=== PATIENT | female | born 1940 | race Caucasian/White ===

== ENCOUNTER → 2023-09-21 10:36 | Outpatient (REF) | payer MEDICARE, BC, SELFPAY ==
--- NOTE | 2023-09-21 10:52 | CA_ITS ---
Transthoracic Echocardiogram Patient (Last, First, Middle): Gena Walker, Gender: Female Date of : 1940 Age: 83 Procedure Date: 09/21/2023 Procedure Type: Transthoracic Echocardiogram Location: OP Height: 157. cm Weight: 99.79 kg BSA: 1.99 m2 Heart Rate: 76 bpm BP: 150 / 80 mmHg Drophammer Operator: ROSA Referring MD: Ger Anton MD Symptoms: SOB RO6.02 I49.49 PREMATURE DEPOLARIZATION Study Quality: Fair ECG Rhythm: Sinus Conclusions: - The left ventricular systolic function is normal. The calculated ejection fraction is 58% by biplane method. - No obvious valvular pathology seen on this study. Findings Left Ventricle Normal left ventricular cavity size. The left ventricular systolic function is normal. The calculated ejection fraction is 58% by biplane method. There is no evidence of regional wall motion abnormalities. Diastolic function is normal for age. There is mild septal asymmetric hypertrophy. LV peak GLS 18.7% (normal). Right Ventricle Normal right ventricular cavity size and systolic function. Atria Both atria are normal in size. Aortic Valve There is a normal trileaflet aortic valve. There is no aortic valve stenosis. There is no aortic valve regurgitation. Mitral Valve The mitral valve appears normal. There is no mitral valve regurgitation. There is no mitral valve stenosis. Pulmonic Valve The pulmonic valve is likely normal. Tricuspid Valve Normal tricuspid valve structure. There is trace tricuspid valve regurgitation. There is no evidence of pulmonary hypertension. Great Vessels The asc aorta is normal in size. Venous The inferior vena cava is normal in size and collapses greater than 50% with inspiration. Pericardium/Pleural There is no evidence of pericardial effusion. Prior Study Comparison No prior study available for comparison. Recommendations, Care & Conclusions No obvious valvular pathology seen on this study. Measurements 2D Linear Measurements IVSd: 1.08 0.6-0.9/0.6-1.0 cm LVIDd: 4.14 3.9-5.3/4.2-5.9 cm LVIDd Index: 2.08 2.4-3.2/2.2-3.1 cm/m2 LVIDs: 2.56 2.0-3.6 cm LVPWd: 0.91 0.7-1.1 cm LA Diam: 2.60 2.7-3.8/3.0-4.0 cm LAIDs Index: 1.31 1.5-2.3 cm/m2 LV Mass: 166.23 67-162/88-224 g LV Mass Index: 83.53 43-95/49-115 g/m2 LVOT Diam: 2.10 3.0+(-)1.3 cm 2D Systolic Function EF 4C: 58.50 >55% EF 2C: 56.90 >55% EF BiP: 58.30 >55% Mitral Valve MV Pk E: 0.74 MV PK A: 1.06 MV Decel Time: 266.00 E/A: 0.70 E'Lateral: 7.62 E'Medial: 5.98 E/E' Med: 12.40 E/E' Lat: 9.70 PHT: 78.00 MVA PHT: 2.82 Decel Bullock: 2.79 Aortic Valve AoV Pk Adrian: 1.53 AoV Mn Adrian: 0.96 AoV VTI: 0.27 AoV Pk Grad: 9.00 Aov Mn Grad: 4.00 AGUS Cont.VTI: 2.61 LVOT LVOT Pk Adrian: 1.06 LVOT Mn Adrian: 0.71 LVOT VTI: 0.21 LVOT Pk Grad: 4.00 LVOT Mn Grad: 2.00 LVOT Diam: 2.10 LVOT Area: 3.46 Diastolic Function MV Pk E: 0.74 MV Pk A: 1.06 E/A: 0.70 E'Medial: 5.98 E/E' Med: 12.40 E' Laterial: 7.62 E/E' Lat: 9.70 Right Ventricle TAPSE (mm): 25.40 TVS' Adrian: 17.00 Tricuspid Valve TR Pk Adrian: 1.93 TR Pk Grad: 15.00 RA Press: 3.00 RVSP: 18.00 Great Vessels Aorta Sinus of Valsalva: 3.30 2.0-3.5 cm Ao Asc: 3.80 2.1-3.4 cm Pulmonary Valve PV Pk Adrian: 0.95 Peak PV Grad: 4.00 Updated in Other Vendor System with Status of Final Stevo Lai MD electronically signed on 09/21/2023 3:45:35 PM with status of Final
--- NOTE | 2023-09-21 10:54 | HM_ITS ---
* Total monitoring time 2 days. * Underlying rhythm is sinus with an average rate of 79/Min. * Frequent ventricular ectopy with a burden of 7%. Rare bigeminy/trigeminy. No significant runs. * Rare supraventricular ectopy. * No significant pauses or AV blocks. * Patient marker used in association with sinus rhythm and ventricular ectopy. * Shortness of breath in patient diary correlates with ventricular ectopy. MTDD
== END ==
LOC: HO.CARD 10:36
PROVIDERS: PCP Internal Medicine; Visit Provider Internal Medicine
DX: R06.02 Shortness of breath (principal); I49.49 Other premature depolarization
CPT/HCPCS: 93242; 93306; 93356

== ENCOUNTER → 2023-09-21 10:52 | Outpatient (BNV) | payer MEDICARE, OTHER, SELFPAY | PROVIDERS: PCP Internal Medicine; Visit Provider Internal Medicine | DX: I49.3 Ventricular premature depolarization (principal) | CPT/HCPCS: 93244; 93306; 93356 ==

== ENCOUNTER 2024-01-10 14:53 | Outpatient (AMB) | payer MEDICARE, SELFPAY ==
--- NOTE | 2024-01-10 14:55 | A.OFFVIS_ITS ---
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 Patient herself does not have any history of coronary artery disease, myocardial infarction or cardiomyopathy or in fact any other cardiac issues. She denies any complaints like exertional angina. Some shortness of breath off and on. She seems to be on triamterene/hydrochlorothiazide for hypertension. Today's blood pressure is on the higher side but she states she is anxious. [facility] Medical History (Updated 01/10/24 @ 15:32 by Stevo Lai MD) Essential hypertension Family History (Updated 01/10/24 @ 15:22 by Stevo Lai MD) Mother Liver cancer Father Leukemia Social History (Updated 01/10/24 @ 15:06 by Estephanie Catherine CMA) Alcohol intake: current Comment: rare Patient Tobacco Use Status: Former Tobacco user Review of Systems Const Denies chills, Denies daytime sleepiness, Denies fatigue, Denies fever(s), Denies poor appetite, Denies snoring, Denies stops breathing during sleep, Denies weakness, Denies weight gain and Denies weight loss Eyes Denies loss of vision ENT Denies dizziness and Denies hearing loss Card Denies chest pain, Denies irregular heart rhythm, Denies claudication, Denies leg edema, Denies lightheadedness, Denies palpitations, Reports dyspnea on exertion and Denies orthopnea Resp Denies cough, Denies excessive phlegm production, Reports dyspnea on exertion, Denies snoring and Denies wheezing GI Denies abdominal pain, Denies hematochezia, Denies change in bowel habits, Denies nausea and Denies vomiting Denies urinary frequency and Denies dysuria Musc Denies arthralgias, Denies muscle weakness, Denies numbness and Denies other Skin/Breast Denies nail changes and Denies rash Neuro Denies Abnormal speech present, Denies dizziness, Denies loss of vision, Denies memory loss, Denies numbness and Denies weakness Psych Denies depression and Denies memory loss Endo Denies fatigue and Denies palpitations Jude/Lymph Denies easy bruising Aller/Immun Denies wheezing Physical Exam Vital Signs: Last Vital Signs Pulse 81 01/10/24 14:59 BP 152/96 H 01/10/24 14:59 BMI result Body Mass Index 42.3 Const General: comfortable and no acute distress Orientation/consciousness: patient oriented x3 HEENT Other: Unremarkable Head: Yes normal to inspection Neck Neck: Yes normal visual inspection Chest Chest palpation & inspection: normal inspection of the chest Resp Auscultation: clear to auscultation bilaterally Cardio Palpation: normal PMI Heart sounds: S1 normal heart sound present, S2 normal heart sound present, no gallops, no murmurs and no rubs GI Palpation (GI): Soft to palpation Back/Spine/Pelvis Other: unremarkable Skin General skin exam: no rashes or lesions noted Neuro General: patient oriented x3 Speech: No Abnormal speech present Extrem General: Yes normal to inspection Psych Mental Status: mental status grossly normal Office Procedures EKG Details: EKG with underlying sinus rhythm at 81/Min; frequent PVCs; [place] [id number], Complete Assessment & Plan Assessment & Plan (1) PVC (premature ventricular contraction): Code(s): I49.3 - Ventricular premature depolarization Category: Medical (2) Essential hypertension: Code(s): I10 - Essential (primary) hypertension Category: Medical Plan EKG shows PVCs as above. Normal corrected QT. In the echocardiogram, LVEF is 58%. No wall motion abnormalities. Normal peak global longitudinal strain. Otherwise unremarkable. In the Holter monitor, underlying rhythm is sinus with frequent ventricular ectopy. [place] 7%. No significant runs. Overall, asymptomatic PVCs with preserved LVEF. Uncertain etiology. We will get a pharmacological stress perfusion study. Unlikely to exercise on the treadmill. Will need to get labs from PCP before that. Otherwise, consider beta-blockers as the blood pressure is also on the slightly higher side. However, patient states it is because of anxiety. Discussed with daughter. Orders: Orders CA lexiscan stress w skye Today I20.9 - Angina pectoris, unspecified, I49.3 - Ventricular premature depolarization NM cardiolite stress test Today I49.3 - Ventricular premature depolarization, R07.2 - Precordial pain Coding Level of Care Code New Pt Level 4 (74969) Diagnoses PVC (premature ventricular contraction) I49.3 Essential hypertension I10 CPT Codes EKG - CPT: 96087-[id number], Complete ([id number])
[2024-01-10 14:59] VITALS: BP 152/96; PULSE 81; BMI 42.3
== END 2024-01-10 15:37 | disposition home or self-care (01) ==
PROVIDERS: PCP Internal Medicine; Visit Provider Internal Medicine
DX: I49.3 Ventricular premature depolarization (principal); I10 Essential (primary) hypertension
CPT/HCPCS: 93010; 99214

== ENCOUNTER → 2024-01-10 14:53 | Outpatient (BNVA) | payer MEDICARE, BC, SELFPAY | PROVIDERS: PCP Internal Medicine; Visit Provider Internal Medicine | DX: I48.3 Typical atrial flutter (principal); I10 Essential (primary) hypertension | CPT/HCPCS: 93005; 99212 ==

== ENCOUNTER 2024-08-25 14:16 | Outpatient (AMB) | payer MEDICARE, BC, SELFPAY ==
[2024-08-25 14:19] VITALS: BP 138/80; PULSE 86; TEMP 36.6; O2SAT 96; BMI 39.0
--- NOTE | 2024-08-25 14:19 | MHC.PC.OV ---
Vital Signs 08/25/24 14:19 Height 5 ft 2 in Weight 213 lb BMI 39.0 BP 138/80 Blood Pressure Location Lt brachial Position Sitting Pulse 86 Pulse Source Pulse Oximeter Temp 97.8 F Temp Source Axillary Pulse Oximetry (%) 96 Oxygen Delivery Method Room Air Intake Visit Reasons: Routine Assessment Technician Required: No Accompanied by: Self / Same As Patient Allergies codeine [CODEINE] Allergy (Intermediate, Unverified 08/25/24 14:20) VOMITING Tobacco use date assessed: 08/25/24 Fall risk assessment: No Falls in past year Last assessed Fall Risk: 08/25/24 Dental Screening Dental Screen Date: 08/25/24 Did you have a dental visit in the last 12 months?: Yes Did you have a dental problem in the last 6 months where you did not have access to dental care?: No HPI HPI Comments History of Present Illness Details Patient is a 83 year old with past medical history of htn, hld, GERD, PUD,venous stasis, arthritis, presneting for follow up CV: on triamterene hctz, atorvastatin. 130/80. Denies chest pain, shortness of breath. History of PVCs. Saw cardiology. GERD: stable on omeprazole Bilateral knee pain ROS see HPI PHYSICAL EXAM: GENERAL: Alert and oriented x 3. NAD EYES: EOMI. Anicteric. HENT: Moist mucous membranes. No scleral icterus. No cervical lymphadenopathy. LUNGS: Clear to auscultation bilaterally. CARDIOVASCULAR: Regular rate and rhythm. No murmur. No JVD. ABDOMEN: Soft, non-tender +bs EXTREMITIES: No edema. Non-tender. SKIN: No rashes or lesions. Warm. NEUROLOGIC: No focal neurological deficits. CN II-XII grossly intact PSYCHIATRIC: Cooperative. Appropriate mood and affect [facility] Medical History Essential hypertension Family History Mother Liver cancer Father Leukemia Social History Housing: House Alcohol intake: current Comment: rare Patient Tobacco Use Status: Former Tobacco user e-Cigarette/Vaping Use: Former Use service: No Current occupational status: retired Cognitive needs: Yes (cane) Hearing needs: No Vision needs: Yes (rx glasses) Questionnaire PHQ-9 Over the last 2 weeks, how often have you been bothered by any of the following problems? 1. Little interest or pleasure in doing things: not at all 2. Feeling down, depressed, or hopeless: not at all 3. Trouble falling or staying asleep, or sleeping too much: not at all 4. Feeling tired or having little energy: not at all 5. Poor appetite or overeating: not at all 6. Feeling bad about yourself - or that you are a failure or have let yourself or your family down: not at all 7. Trouble concentrating on things, such as reading the newspaper or watching television: not at all 8. Moving or speaking so slowly that other people could have noticed. Or the opposite - being so fidgety or restless that you have been moving around a lot more than usual: not at all 9. Thoughts that you would be better off or of hurting yourself in some way: not at all Total score: 0 Depression Screening Interpretation: Negative Depression Screening Done: Yes [id number] - PHQ-9 Billing: Yes Source: Developed by Drs. Delvis Davis, Joanne Olmedo, Darnell Henderson and colleagues, with an educational delon from [employer]. Thrive Questionnaire Date Thrive assessed: 08/25/24 I am a: Patient Within the past 12 months, did the food you bought not last and you didn't have the money to get more?: Never true Within the past 12 months, did you worry whether your food would run out before you got money to buy more?: Never true Do you have trouble paying for medicines?: No Do you have trouble getting transportation to medical appointments?: No Do you have trouble paying your heating and electricity bill?: No Do you have trouble taking care of your child, family member or friend?: No Do you have trouble with day-to-day activities such as bathing, preparing meals, shopping, managing finances, etc.?: No Are you currently unemployed and looking for a job?: No Are you interested in more education?: No THRIVE Score: 0 AUDIT C Alcohol Use Questionnaire (AUDIT-C) 1. How often do you have a drink containing alcohol?: Never 3. How often do you have six or more drinks on one occasion?: Never Total Score: 0 ESTUARDO-7 AMB Questionnaire ESTUARDO-7 Date ESTUARDO - 7 assessed: 08/25/24 Feeling nervous, anxious, or on edge: 0 = Not at all Not being able to stop or control worryin = Not at all Worrying too much about different things: 0 = Not at all Trouble relaxin = Not at all Being so restless that it is hard to sit still: 0 = Not at all Becoming easily annoyed or irritable: 0 = Not at all Feeling afraid as if something awful might happen: 0 = Not at all Total ESTUARDO-7 score (0-4 normal; 5-9 mild; 10-14 moderate; 15-21 severe): 0 Source: Developed by Drs. Delvis Davis, Joanne Olmedo, Darnell Henderson and colleagues, with an educational delon from [employer]. Physical exam (Primary Care) Vital Signs: Last Vital Signs Temp 97.8 F 08/25/24 14:19 Pulse 86 08/25/24 14:19 BP 138/80 08/25/24 14:19 Pulse Ox 96 08/25/24 14:19 Oxygen Delivery Method Room Air 08/25/24 14:19 BMI result Body Mass Index 39.0 Tobacco/Smoking Status: Tobacco use Status Tobacco use date assessed 08/25/24 08/25/24 14:21 Patient Tobacco Use Status Former Tobacco user 08/25/24 14:21 e-Cigarette/Vaping Use Former Use 08/25/24 15:15 PHQ-9: PHQ-9 Score PHQ-9: Total score 0 08/25/24 15:22 Depression Screening Interpretation: Negative Thrive Assessment: Date of Thrive Assessment Date Thrive assessed 08/25/24 08/25/24 14:21 Coding Level of Care Code New Pt Level 4 (04341) Complex EM visit Add On G2211 Diagnoses Essential hypertension I10 PVC (premature ventricular contraction) I49.3 Primary osteoarthritis of both knees M17.0 Osteoarthritis type: primary Laterality: bilateral Additional Codes PHQ-9 - 61714 - PHQ-9 Billing: Yes ([id number]) Assessment & Plan Assessment & Plan (1) Essential hypertension: Code(s): I10 - Essential (primary) hypertension Category: Medical (2) PVC (premature ventricular contraction): Code(s): I49.3 - Ventricular premature depolarization Category: Medical (3) Osteoarthritis of knee: Code(s): M17.9 - Osteoarthritis of knee, unspecified Category: Medical Qualifiers: Osteoarthritis type: primary Laterality: bilateral Qualified Code(s): M17.0 - Bilateral primary osteoarthritis of knee Plan 84 year old to establish care Past medical, surgical, social reviewed HLD-labs ordered. GERD-stable on current medicaitons Efforts toward weight loss Declines referral ortho for bilateral knee pain Orders: Orders Comprehensive Met. Panel 08/25/24 I10 - Essential (primary) hypertension, I49.3 - Ventricular premature depolarization, Z13.0 - Encounter for screening for diseases of the blood and blood-forming organs and certain disorders involving the immune mechanism, Z13.220 - Encounter for screening for lipoid disorders, Z13.228 - Encounter for screening for other metabolic disorders TSH reflex Free T4 08/25/24 I10 - Essential (primary) hypertension, I49.3 - Ventricular premature depolarization, Z13.0 - Encounter for screening for diseases of the blood and blood-forming organs and certain disorders involving the immune mechanism, Z13.220 - Encounter for screening for lipoid disorders, Z13.228 - Encounter for screening for other metabolic disorders Complete Blood Count Auto Diff 08/25/24 I10 - Essential (primary) hypertension, I49.3 - Ventricular premature depolarization, Z13.0 - Encounter for screening for diseases of the blood and blood-forming organs and certain disorders involving the immune mechanism, Z13.220 - Encounter for screening for lipoid disorders, Z13.228 - Encounter for screening for other metabolic disorders Hemoglobin A1c 08/25/24 I10 - Essential (primary) hypertension, I49.3 - Ventricular premature depolarization, Z13.0 - Encounter for screening for diseases of the blood and blood-forming organs and certain disorders involving the immune mechanism, Z13.220 - Encounter for screening for lipoid disorders, Z13.228 - Encounter for screening for other metabolic disorders Medications: New omeprazole 20 mg PO DAILY 90 caps 0RF atorvastatin for refills 10 mg PO DAILY 90 tabs 3RF
== END 2024-08-25 15:41 | disposition home or self-care (01) ==
LOC: HO.HMCHD 14:17
PROVIDERS: PCP Internal Medicine; Visit Provider Internal Medicine
DX: I10 Essential (primary) hypertension (principal); I49.3 Ventricular premature depolarization; M17.0 Bilateral primary osteoarthritis of knee

== ENCOUNTER → 2024-08-25 14:16 | Outpatient (BNVA) | payer MEDICARE, BC, SELFPAY | PROVIDERS: PCP Internal Medicine; Visit Provider Internal Medicine | DX: I10 Essential (primary) hypertension (principal); E78.5 Hyperlipidemia, unspecified; K21.9 Gastro-esophageal reflux disease without esophagitis; I49.3 Ventricular premature depolarization; M17.0 Bilateral primary osteoarthritis of knee | CPT/HCPCS: 96127; 99202 ==

== ENCOUNTER 2025-03-16 11:15 | Outpatient (AMB) | payer MEDICARE, OTHER, SELFPAY ==
--- NOTE | 2025-03-16 11:22 | A.OFFPC_ITS ---
Vital Signs 03/16/25 11:23 Height 5 ft 2 in Weight 221 lb BMI 40.4 BP 128/76 Blood Pressure Location Lt brachial Position Sitting Pulse 83 Pulse Source Pulse Oximeter Temp 98.3 F Temp Source Temporal Artery Scan Pulse Oximetry (%) 95 Oxygen Delivery Method Room Air Intake Visit Reasons: 6 Month F/U Chief Clinical Officer Required: No Accompanied by: Self / Same As Patient Allergies codeine (CODEINE) Allergy (Intermediate, Verified 03/16/25 11:23) VOMITING Medication List - Last Reconciled 03/16/25 by Richi Starks MD atorvastatin 10 mg PO DAILY cholecalciferol (vitamin D3) 50 mcg PO DAILY omeprazole 20 mg PO DAILY triamterene-hydrochlorothiazid 37.5-25 mg 1 cap PO DAILY Tobacco use date assessed: 03/16/25 Fall risk assessment: No Falls in past year Last assessed Fall Risk: 03/16/25 Dental Screening Dental Screen Date: 03/16/25 Did you have a dental visit in the last 12 months?: Yes Did you have a dental problem in the last 6 months where you did not have access to dental care?: No HPI HPI Comments History of Present Illness Details The patient is an 85-year-old female presenting for management of chronic conditions, including arthritis. She reports that her arthritis flares up intermittently but she prefers to avoid taking medications like Aleve, only using them when she absolutely needs to due to pain. The patient has a history of acid reflux and has been taking omeprazole for years. She also has hypertension, which is well-controlled with triamterene- hydrochlorothiazide 37.5-25 mg, and hyperlipidemia, managed with atorvastatin 10 mg. Her blood pressure was 128/76 mmHg, and A1c from September was well-controlled. She reports having cataracts in both eyes but states they are not bothersome as she does not drive, and she undergoes yearly eye exams. She experiences intermittent leg swelling, noting it comes and goes, and was prescribed triamterene to help with fluid expulsion. She has tried compression stockings but finds them impossible to put on. Regarding immunizations, the patient needs a flu shot but is hesitant to get another COVID-19 vaccine because a previous dose made her very nauseous, though she has never had a reaction to flu shots. Medical History: - Arthritis - Gastroesophageal reflux disease - Hypertension - Hyperlipidemia - Bilateral cataracts Medications: - Omeprazole for acid reflux - Atorvastatin 10 mg for hyperlipidemia - Triamterene-hydrochlorothiazide 37.5-2 5 mg for hypertension - Vitamin D supplement - Aleve as needed for arthritis pain - Tylenol as needed for arthritis pain Family History: - Late had dementia. Diagnostic Results: - Labs from September: A1c was well under cont rol. Social History: - The patient does not drive. - She reports being active, getting up a nd down a lot. [facility] Medical History (Updated 03/16/25 @ 12:02 by Richi Starks MD) Peripheral edema GERD (gastroesophageal reflux disease) Arthritis Hyperlipidemia Essential hypertension Family History (Updated 03/16/25 @ 11:30 by Rhoda Peoples MA) Mother Liver cancer Father Leukemia Social History Housing: House Alcohol intake: current Comment: rare Patient Tobacco Use Status: Former Tobacco user e-Cigarette/Vaping Use: Former Use service: No Current occupational status: retired Cognitive needs: Yes (cane) Hearing needs: No Vision needs: Yes (rx glasses) Questionnaire PHQ-9 Over the last 2 weeks, how often have you been bothered by any of the following problems? 1. Little interest or pleasure in doing things: not at all 2. Feeling down, depressed, or hopeless: not at all 3. Trouble falling or staying asleep, or sleeping too much: not at all 4. Feeling tired or having little energy: not at all 5. Poor appetite or overeating: not at all 6. Feeling bad about yourself - or that you are a failure or have let yourself or your family down: not at all 7. Trouble concentrating on things, such as reading the newspaper or watching television: not at all 8. Moving or speaking so slowly that other people could have noticed. Or the opposite - being so fidgety or restless that you have been moving around a lot more than usual: not at all 9. Thoughts that you would be better off or of hurting yourself in some way: not at all Total score: 0 Source: Developed by Drs. Delvis Davis, Joanne Olmedo, Darnell Henderson and colleagues, with an educational delon from [employer]. Thrive Questionnaire Date Thrive assessed: 10/31/25 I am a: Patient Within the past 12 months, did the food you bought not last and you didn't have the money to get more?: Never true Within the past 12 months, did you worry whether your food would run out before you got money to buy more?: Never true Do you have trouble paying for medicines?: No Do you have trouble getting transportation to medical appointments?: No Do you have trouble paying your heating and electricity bill?: No Do you have trouble taking care of your child, family member or friend?: No Do you have trouble with day-to-day activities such as bathing, preparing meals, shopping, managing finances, etc.?: No Are you currently unemployed and looking for a job?: No Are you interested in more education?: No THRIVE Score: 0 AUDIT C Alcohol Use Questionnaire (AUDIT-C) 1. How often do you have a drink containing alcohol?: Never 3. How often do you have six or more drinks on one occasion?: Never Total Score: 0 ESTUARDO-7 AMB Questionnaire ESTUARDO-7 Date ESTUARDO - 7 assessed: 03/16/25 Feeling nervous, anxious, or on edge: 0 = Not at all Not being able to stop or control worryin = Not at all Worrying too much about different things: 0 = Not at all Trouble relaxin = Not at all Being so restless that it is hard to sit still: 0 = Not at all Becoming easily annoyed or irritable: 0 = Not at all Feeling afraid as if something awful might happen: 0 = Not at all Total ESTUARDO-7 score (0-4 normal; 5-9 mild; 10-14 moderate; 15-21 severe): 0 Source: Developed by Drs. Delvis Davis, Joanne Olmedo, Darnell Hendreson and colleagues, with an educational delon from [employer]. Review of Systems Narrative - General: Denies nausea and vomiting. - Cardiovascular: Denies chest pain. - Respiratory: Denies shortness of breath. - Neurological: Reports occasional headaches. - Eyes: Reports cataracts in both eyes but denies vision changes or that they are bothersome. - Musculoskeletal: Reports intermittent arthritis pain. All systems reviewed & are unremarkable except as reviewed in HPI and above Physical exam (Primary Care) Vital Signs: Last Vital Signs Temp 98.3 F 03/16/25 11:23 Pulse 83 03/16/25 11:23 BP 128/76 03/16/25 11:23 Pulse Ox 95 03/16/25 11:23 Oxygen Delivery Method Room Air 03/16/25 11:23 BMI result Body Mass Index 40.4 Tobacco/Smoking Status: Tobacco use Status Tobacco use date assessed 03/16/25 03/16/25 11:26 Patient Tobacco Use Status Former Tobacco user 03/16/25 11:26 e-Cigarette/Vaping Use Former Use 03/16/25 11:26 PHQ-9: PHQ-9 Score PHQ-9: Total score 0 03/16/25 11:26 Thrive Assessment: Date of Thrive Assessment Date Thrive assessed 03/16/25 03/16/25 11:26 Narrative General: +Alert and oriented, Well nourished, No acute distress. Eye: Pupils are equal, round and reactive to light, Intact accommodation, Extraocular movements are intact, Normal conjunctiva, Vision unchanged, Cataracts in both eyes. HENT: Normocephalic, Atraumatic, Tympanic membranes are clear, Normal hearing, Oral mucosa is moist, No pharyngeal erythema, Ear canals patent. Respiratory: Lungs CTA bilaterally, No wheeze, Respirations are non-labored. Cardiovascular: Regular rate, Regular rhythm, S1 auscultated, S2 auscultated, No murmur, Good pulses equal in all extremities, Normal peripheral perfusion, No edema. Gastrointestinal: Soft, Non-tender, Non-distended, Normal bowel sounds, No organomegaly. Musculoskeletal: Normal range of motion, Normal strength, No tenderness, No swelling, No deformity, Normal gait. Integumentary: Warm, Dry, [place], Intact. Neurologic: Alert, Oriented, Normal sensory, Normal motor function, No focal defects, Cranial Nerves II-XII are grossly intact, Normal deep tendon reflexes. Psychiatric: Cooperative, Appropriate mood & affect, Normal judgment. Coding Level of Care Code Est Pt Level 4 (14927) Complex EM visit Add On G2211 Diagnoses Essential hypertension I10 Other hyperlipidemia E78.49 Hyperlipidemia type: other hyperlipidemia Arthritis M19.90 Gastroesophageal reflux disease without esophagitis K21.9 Esophagitis presence: without esophagitis Peripheral edema R60.9 Assessment & Plan Assessment & Plan (1) Essential hypertension: Comment: - Her blood pressure is well-controlled at 128/76 mmHg on triamterene- hydrochlorothiazide. - She will continue her current medication. Code(s): I10 - Essential (primary) hypertension Category: Medical (2) Hyperlipidemia: Comment: - The patient will continue taking atorvastatin 10 mg. - We will re-evaluate with lab work before her next visit. Code(s): E78.5 - Hyperlipidemia, unspecified Category: Medical Qualifiers: Hyperlipidemia type: other hyperlipidemia Qualified Code(s): E78.49 - Other hyperlipidemia (3) Arthritis: Comment: - The patient's arthritis pain is managed conservatively. - She was advised that she can use Tylenol or Aleve sparingly for severe pain and to take Aleve with omeprazole to protect her stomach. Code(s): M19.90 - Unspecified osteoarthritis, unspecified site Category: Medical (4) GERD (gastroesophageal reflux disease): Comment: - She will continue taking omeprazole, which is also beneficial when she takes Aleve. - She has the option to try holding the medication to see if it is still needed. Code(s): K21.9 - Gastro-esophageal reflux disease without esophagitis Category: Medical Qualifiers: Esophagitis presence: without esophagitis Qualified Code(s): K21.9 - Gastro-esophageal reflux disease without esophagitis (5) Peripheral edema: Comment: - The leg swelling is intermittent. - The hydrochlorothiazide in her blood pressure medication helps with fluid excretion. - Advised to elevate her legs when sitting. Code(s): R60.9 - Edema, unspecified Category: Medical Plan: Health Maintenance: - Advised to obtain influenza and COVID-19 shots at a local drugstore. - Addressed patient's concerns regarding post-vaccination side effects, explaining that nausea after the last COVID shot indicates an appropriate immune response. - Patient reports getting yearly eye exams for her cataracts. - Schedule a follow-up physical exam in 6 months. - Lab requisitions have been placed for completion one to two weeks before her next appointment. Patient was informed and verbally consented to the use of an ambient scribe for clinic note documentation during this visit. Plan I reviewed the patient's current health status and her management of chronic conditions, including arthritis, hypertension, and hyperlipidemia. We discussed her reluctance to take pain medication, and I advised her that occasional, moderate use of Aleve with her omeprazole is safe for her arthritis pain. I strongly recommended she receive both the flu and COVID-19 vaccinations, explaining that the nausea she experienced from the COVID shot was a sign that her body was building a proper immune response, which is a desired outcome. For her leg swelling, I recommended leg elevation, as she finds compression stockings difficult to use. We agreed she will have a physical exam in 6 months, with lab work completed at one of our affiliated facilities beforehand for ease of review. Orders: Orders Complete Blood Count Auto Diff 6 Months Z00.00 - Encounter for general adult medical examination without abnormal findings TSH reflex Free T4 6 Months Z00.00 - Encounter for general adult medical examination without abnormal findings Comprehensive Met. Panel 6 Months Z00.00 - Encounter for general adult medical examination without abnormal findings Hemoglobin A1c 6 Months Z00.00 - Encounter for general adult medical examination without abnormal findings Lipid Panel 6 Months Z00.00 - Encounter for general adult medical examination without abnormal findings Vitamin D 25-OH Total 6 Months Z00.00 - Encounter for general adult medical examination without abnormal findings Patient Instructions: - Continue taking your daily medications for blood pressure, cholesterol, and acid reflux as prescribed. - For arthritis pain, it is okay to take Tylenol. - If the pain is very bad, you can take one Aleve pill, but be sure to take it with your omeprazole. - Try to keep your legs elevated when you are sitting to help with the swelling. - Please go to a local drugstore to get your flu shot and COVID-19 shot. - In about six months, you will come back for a physical exam. - One or two weeks before that next appointment, please go to one of our hospital's labs to have your blood drawn. - You do not need any paperwork for the labs; the order is already in the system.
[2025-03-16 11:23] VITALS: BP 128/76; PULSE 83; TEMP 36.8; O2SAT 95; BMI 40.4
--- OUTSIDE RECORDS SUMMARY | 2025-03-16 12:52 | XMS_ITS | Patient Health Record ---
Author Organization [facility] [place] Address [address] [place] [place] [address] Care Team Providers Care Valve Tester Name Role Phone Ger Anton MD Primary Care Provider Anton Omer Unavailable [phone] Allergies Allergen (clinical drug ingredient) Drug/Non Drug Allergy documented on EMR Reaction Allergy Type Onset Date Status codeine Codeine vomiting Drug Allergy Active aspirin aspirin GI upset Drug Allergy Active Reason For Referral No Information Medications Medication SIG (Take, Route, Frequency, Duration) Notes Start Date End Date Status Atorvastatin Calcium 10 MG 1 tablet Orally Once a day Active Triamterene-HCTZ Act raymundo Omeprazole 20 MG 1 capsule Orally Onc e a day; Duration: 30 day(s) Active Cephalexin 500 MG 1 tablet Orally ever y 12 hrs; Duration: 5 days Active Ammonium Lactate 12 % 1 application to affected area Externally Twice a day to dry areas of skin on feet; Duration: 30 days 07/24/2016 Not-Taki ng Glucosamine HCl Not- Taking Vitamin D3 61826 UNIT Orally Active Social History Tobacco Use: Social History Observation Description Date Details (start date - stop date) Former Smoker NA - NA Tobacco Use/Smoking Question Answer Notes Are you a: former smoker When did you stop smoking? 20 yrs ago Additional Findings: Tobacco Non-User Current no n-smoker Tobacco use other than smoking: Question Answer Notes Are you an other tobacco user? No Problems Problem Type SNOMED Code ICD Code Onset Dates Problem Status W/U Status Risk Notes Problem Tinea unguium (688574691) Tinea unguium (B35.1) Active confirmed Problem Plantar wart (27823423) Plantar wart (B07.0) Active confirmed Plan Of Treatment Pending Test Test Name Order Date [id number] NAIL, 6 OR MORE 02/03/2011 [id number] NAIL, 6 OR MORE 09/18/2011 [id number] NAIL, 6 OR MORE 12/01/2011 33063-CPULXBY NAIL, 6 OR MORE 02/12/2012 33503-XEXKOHM NAIL, 6 OR MORE 04/29/2012 76584-XNZBOYZ NAIL, 6 OR MORE 08/09/2012 30712-VRXIYBQ NAIL, 6 OR MORE 04/21/2011 24257-UYBKCIT NAIL, 6 OR MORE 07/07/2011 01607-EVYDITP NAIL, 6 OR MORE 11/08/2012 66572-MHSWZYM NAIL, 6 OR MORE 02/07/2013 55897-UATNCWN NAIL, 6 OR MORE 05/23/2013 97950-FYQWCBH NAIL, 6 OR MORE 08/22/2013 14469-UXIRBZY NAIL, 6 OR MORE 01/26/2014 41720-SLHHEGR NAIL, 6 OR MORE 04/27/2014 04966-CPUGEKG NAIL, 6 OR MORE 07/27/2014 36614-WTGQXII NAIL, 6 OR MORE 11/30/2014 34560-SMOFFFU NAIL, 6 OR MORE 07/05/2015 77459-QDAZOIV NAIL, 6 OR MORE 10/18/2015 43606-BEMRJSO NAIL, 6 OR MORE 01/17/2016 78565-TKWXMLW NAIL, 6 OR MORE 04/17/2016 62649-RNIMRCO NAIL, 6 OR MORE 03/15/2015 11009-TOVWMHY NAIL, 6 OR MORE 07/24/2016 53443-WLWQDCJ NAIL, 6 OR MORE 10/23/2016 70488-DTJGHXW NAIL, 6 OR MORE 01/22/2017 16749-WACKCJK NAIL, 6 OR MORE 04/23/2017 07512-QMUXVII NAIL, 6 OR MORE 08/20/2017 54328-PIXYGAX NAIL, 6 OR MORE 11/19/2017 82291-VELBHZN NAIL, 6 OR MORE 02/18/2018 42202-Ybhp Destruction, -02/18/2018 98359-Rnok Destruction, -14 11/19/2017 31515-Klsp Destruction, -08/20/2017 90995-Tsmn Destruction, -04/23/2017 01744-Nybt Destruction, -01/22/2017 71445-Wqzv Destruction, 1-14 07/24/2016 29849-Oayr Destruction, -14 10/23/2016 68602-Ghbm Destruction, -14 04/17/2016 61936-Azhc Destruction, 1-14 07/07/2011 61859-Jxpj Destruction, 1-14 02/03/2011 03100-Fdba Destruction, -14 04/21/2011 07827-Ebbodmlq Plate 08/09/2012 97628-Tlqglrwq Plate 02/07/2013 06048-Xdjmndcf Plate Each Additional 57793- Debride <25 sq cm 02/07/2013 70208- Debride <25 sq cm 11/08/2012 08406- Debride <25 sq cm 11/30/2014 81718- Debride <25 sq cm 07/27/2014 12274- Debride <25 sq cm 04/27/2014 03754- Debride <25 sq cm 01/26/2014 70669- Debride <25 sq cm 08/22/2013 51665- Debride <25 sq cm 05/23/2013 88127- Debride <25 sq cm 03/15/2015 21837-Jqvcsrjia, Toes 04/21/2011 Insurance Providers Payer Name Payer Address Payer Phone Subscriber Number Group Number Insured Name Patient Relationship to Insured Coverage Start Date Coverage End Date Medicare National [employer] [address] [facility] [place] [address] [id number] Gena Walker Self - patient is the insured [address] [place], [place] [phone] [address] [place] [address] [id number] MarsielaGena singh Self - patient is the insured Medical (General) History Medical History History ICD Code transfusions mumps measles chicken pox hernia (hiatal) back, hip, knee pain anemia reflux Cholesterol Surgical History Surgery Date(Month/Year) colonoscopy polyp removed
--- OUTSIDE RECORDS SUMMARY | 2025-03-16 12:52 | XMS_ITS | Encounter Summary ---
Author Organization [facility] Address [address] [place] [address] Phone Care Team Providers Care Packaging Associate Name Role Phone Ger Anton MD Primary Care Provider Encounter Details Date Type Department Care Team (Late st Contact Info) Description 07/04/2019 Ancillary Orders Virtual Department [address] [place] [address] Ger Anton MD [address] [place] [address] [place] [address] Pain in both knees, unspecified chronicity Social History Tobacco Use Types Packs/Day Years Used Date Smoking Tobacco: Former Smokeless Tobacco: Never Alcohol Use Standard Drinks/Week Comments Yes 0 (1 standard drink = 0.6 oz pur e alcohol) occasionally Comments No Sex and Gender Information Value Date Recorded Sex Assigned at Female 07/08/2019 12:59 AM EST Legal Sex Female 11:06 AM EDT Gender Identity Female 07/08/2019 12:59 AM EST Sexual Orientation Straight 07/08/2019 12 :59 AM EST documented as of this encounter Plan of Treatment Not on file documented as of this encounter Visit Diagnoses Diagnosis Pain in both knees, unspecified chronicity documented in this encounter Care Teams Packaging Associate Relationship Specialty Start Date End Date Ger Anton MD [address] [place] [address] [place] [address] PCP - General Internal Medicine 09/28/18 documented as of this encounter Additional Source Comments The information contained in this document represents components of the legal health record. It is not the complete legal health record.[facility]
--- OUTSIDE RECORDS SUMMARY | 2025-03-16 12:52 | XMS_ITS | Encounter Summary ---
Author Organization [facility] Address [address] [place] [address] Phone Care Team Providers Care Tube Balancer Name Role Phone Ger Anton MD Primary Care Provider Reason for Referral * Physical Therapy (Routine) - Closed Specialty Diagnoses / Procedures Referred By Shanti gibbs Referred To Contact Physical Therapy Diagnoses Encounter for rehabilitation Ger Anton MD [address] [place] [address] [place] [address] Phone: tel: fax: [address] [address] Phone: tel: Referral ID Status Reason Start Date Expiration Date Visits Re quested Visits Authorized [id number] Closed 07/13/2019 05/16/2020 99 99 Encounter Details Date Type Department Care Team (Latest Contact Info) Description 07/13/2019 Transcribe Orders [facility] [address] [place] [address] [place] [address] Ger Anton MD [address] [place] [address] [place] [address] Encounter for rehabilitation (Primary Dx) Social History Tobacco Use Types Packs/Day Years [...] as of this encounter Plan of Treatment Scheduled Referrals Name Type Priority Associated Diagnoses Orde r Schedule Ambulatory referral to [facility] Physical Therapy Outpatient Referral Routine Encounter for rehabilitation Ordered: 07/13/2019 documented as of this encounter Visit Diagnoses Diagnosis Encounter for rehabilitation- Primary documented in this encounter Care Teams Tube Balancer Relationship Specialty Start Date End Date Ger Anton MD [address] [place] [address] [place] [address] PCP - General Internal Medicine 09/28/18 documented as of this encounter Additional Source Comments The information contained in this document represents components of the legal health record. It is not the complete legal health record.[facility]
--- OUTSIDE RECORDS SUMMARY | 2025-03-16 12:52 | XMS_ITS | Clinical Summary ---
Author Organization [facility] Address [address] [place] [address] Phone Care Team Providers Care Wharf Hand Name Role Phone Ger Anton MD Primary Care Provider Allergies Active Allergy Reactions Criticality Noted Date Comments Aspirin Nausea and/or Vomiting 10/02/2018 Codeine Nausea and/or Vomiting 10/02/2018 Medications OMEPRAZOLE ORAL Take by mouth. Active atorvastatin calcium (ATORVASTATIN ORAL) Take by mouth. Active triamterene-hyd roCHLOROthiazid e (DYAZIDE) 37.5-25 mg per capsule Take 1 capsule by mouth every morning. 08/07/2024 Active Active Problems No known active problems Social History Tobacco Use Types Packs/Day Years Used Date Smoking Tobacco: Former Smokeless Tobacco: Never Tobacco Cessation:Counseling Given: Not Answered Alcohol Use Standard Drinks/Week Comments Yes 0 (1 standard drink = 0.6 oz pur e alcohol) occasionally Education Answer Date Recorded Are you interested in more education? Not on aruna e 09/11/2022 Are you concerned about learning? Not on file 09/11/2022 No 09/11/2022 No 09/11/2022 Digital Access Answer Date Recorded No 10/10/2022 No 10/10/2022 Reliable internet access at home? Not on file 10/10/2022 Device with a working camera? Not on file Comments No Sex and Gender Information Value Date Recorded Sex Assigned at Female 07/08/2019 12:59 AM EST Legal Sex Female 11:06 AM EDT Gender Identity Female 07/08/2019 12:59 AM EST Sexual Orientation Straight 07/08/2019 12 :59 AM EST Last Filed Vital Signs Vital Sign Reading Time Taken Comments Blood Pressure 133/87 08/29/2024 3:27 PM EDT Pulse 76 08/29/2024 3:27 PM EDT Temperature 36.7 C (98 F) 08/29/2024 3:27 PM EDT Respiratory Rate 16 08/29/2024 3:27 PM EDT Oxygen Saturation 100% 08/29/2024 3:27 PM EDT Inhaled Oxygen Concentration - - Weight 89.8 kg (198 lb) 10/02/2018 1:08 PM EDT Height 157.5 cm (5' 2 ) 10/02/2018 1:08 PM EDT Body Mass Index 36.21 10/02/2018 1:08 PM EDT Plan of Treatment Health Maintenance Due Date Last Done Comments Adult Td,Tdap Booster 1940 DEPRESSION SCREENING 1953 PNEUMOCOCCAL VACCINES (50+ years) (1 of 1 - PCV) 1991 ZOSTER VACCINES (1 of 2) 1991 OSTEOPOROSIS SCREENING INITIAL (ONE-TIME) 2006 RSV VACCINE (1 - 1-dose 75+ series) 2016 INFLUENZA VACCINE (#1) 2024 01/26/2019 COVID-19 VACCINE (5 - season) 2025 03/12/2022, 03/24/2021, 07/18/2020, Additional history exists BLOOD PRESSURE 02/28/2025 08/29/2024 POTASSIUM LEVEL 09/21/2025 09/21/2024, 02/15, 02/27/2022, Additional history exists HEPATITIS A VACCINES Aged Out No long er eligible based on patient's age to complete this topic HIB VACCINES Aged Out No longer eligi ble based on patient's age to complete this topic MENINGOCOCCAL VACCINES (ACWY) Aged Out No longer eligible based on patient's age to complete this topic MENINGOCOCCAL VACCINES (B) Aged Out N o longer eligible based on patient's age to complete this topic Medical Devices Not on file Procedures Procedure Name Priority Date/Time Associated Diagnosis Comments COMPREHENSIVE METABOLIC PANEL Routine 09/21/2024 11:38 AM EDT Hypertension, essential Ventricular premature depolarization Screening for lipoid disorders Encounter for screening for other metabolic disorders from Last 3 Months or Most Recently Relevant to Health Maintenance Results * (ABNORMAL) Comprehensive metabolic panel (09/21/2024 11:38 AM EDT) SODIUM 144 133 - 146 mmol/L [facility] POTASSIUM 3.8 3.3 - 5.1 mmol/L [facility] CHLORIDE 102 96 - 108 mmol/L [facility] CO2 31 21 - 35 mmol/L [facility] BUN 26(H) 6 - 19 mg/dL [facility] CREATININE 0.90 0.5 - 1.5 mg/dL [facility] GLUCOSE 100(H) 70 - 99 mg/dL [facility] ALBUMIN 4.3 3.9 - 4.8 g/dL [facility] TOTAL PROTEIN 7.4 6.5 - 8.0 g/dL [facility] CALCIUM 9.9 8.4 - 10.3 mg/dL [facility] ALKALINE PHOSPHATASE 66 39 - 117 U/L [facility] TOTAL BILIRUBIN 0.4 0.0 - 1.2 mg/dL [facility] AST 16 0 - 37 U/L [facility] ALT 10 0 - 40 U/L [facility] GLOBULIN 3.1 1 - 4.8 g/dL [facility] EGFR 63 >59 mL/min/1.7 3m2 [facility] Comment:Estimated glomerular filtration rate calculated using the CKD-EPI refit equation. ANION GAP 15 10 - 20 mmol/L [facility] Blood 09/21/2024 11:3 8 AM EDT 09/21/2024 11:42 AM EDT us Maite Balderas MD LAB BLOOD ORDERABLES Final R esult [facility] [address] [place] [address] from Last 3 Months or Most Recently Relevant to Health Maintenance Insurance MEDICARE PART A & B [employer] MEDICARE PART A & B [employer] MEDICARE PART A & B O MEDICARE PART A & B O MEDICARE PART A & B O MEDICARE PART A & B O MEDICARE PART A [facility] B [employer] MEDICARE PART A & B [employer] Care Teams Wharf Hand Relationship Specialty Start Date End Date Ger Anton MD [address] [place] [address] [place] [address] PCP - General Internal Medicine 09/28/18 Additional Source Comments The information contained in this document represents components of the legal health record. It is not the complete legal health record.[facility]
--- OUTSIDE RECORDS SUMMARY | 2025-03-16 12:52 | XMS_ITS | Encounter Summary ---
Author Organization [facility] Address [address] [place] [address] Phone Care Team Providers Care Chief Quality Officer Name Role Phone Ger Anton MD Primary Care Provider Encounter Details Date Type Department Care Team (Late st Contact Info) Description 07/04/2019 Ancillary Orders Virtual Department [address] [place] [address] Myranda Social History Tobacco Use Types Packs/Day Years [...] documented as of this encounter Visit Diagnoses Not on filedocumented in this encounter Care Teams Chief Quality Officer Relationship Specialty Start Date End Date Ger Anton MD [address] [place] [address] [place] [address] PCP - General Internal Medicine 09/28/18 documented as of this encounter Additional Source Comments The information contained in this document represents components of the legal health record. It is not the complete legal health record.[facility]
--- OUTSIDE RECORDS SUMMARY | 2025-03-16 12:52 | XMS_ITS | Encounter Summary ---
Author Organization [facility] Address [address] [place] [address] Phone Care Team Providers Care Demolition Engineer Name Role Phone Ger Anton MD Primary Care Provider Encounter Details Date Type Department Care Team (Late st Contact Info) Description 03/29/2019 Transcribe Orders [facility] [address] [place] [address] Ger Anton MD [address] [place] [address] [place] [address] Hypertension, unspecified type (Primary Dx) Social History Tobacco Use Types [...] on file documented as of this encounter Results * (ABNORMAL) CBC and differential (03/29/2019 1:08 PM EST) WBC 6.96 3.40 - 11.20 K/uL [facility] RBC 4.86(H) 3.80 - 4.80 M/uL [facility] HGB 13.6 12.0 - 15.0 g/dL [facility] HCT 41.5 36.0 - 46.0 % [facility] PLT 225 130 - 400 K/uL [facility] MCV 85.4 79.0 - 98.0 [facility] MCH 28.0 27.0 - 34.8 pg [facility] MCHC 32.8 31.5 - 36.0 g/dL [facility] RDW 13.2 10.8 - 14.6 % [facility] MPV 11.1 9.4 - 12.4 fl [facility] NRBC 0.00 0.00 /100 WBCs [facility] ABSOLUTE NRBC 0.00 0.00 K/uL [facility] DIFF METHOD Auto [facility] NEUTS 71.5 45.30 - 77.70 % [facility] LYMPHS 20.7 12.30 - 39.70 % [facility] MONOS 6.0 4.10 - 12.80 % [facility] EOS 1.1 0 - 7.2 % [facility] BASOS 0.4 0 - 2.80 % [facility] Granulocytes, immature (%) 0.3 0.0 - 0.9 % [facility] ABSOLUTE NEUTS 4.97 1.40 - 7.70 K/uL [facility] ABSOLUTE LYMPHS 1.44 0.60 - 3.20 K/uL [facility] ABSOLUTE MONOS 0.42 0.11 - 0.59 K/uL [facility] ABSOLUTE EOS 0.08 0.01 - 0.50 K/uL [facility] ABSOLUTE BASOS 0.03 0.00 - 0.08 K/uL [facility] Granulocytes, immature 0.02 0.00 - 0.05 K/uL [facility] Blood 03/29/2019 1:08 PM EST 03/29/2019 1:09 PM EST us Ger Anton MD LAB BLOOD ORDERABLES Fi nal Result [facility] [address] [place], [place] [id number] * Comprehensive metabolic panel (03/29/2019 1:08 PM EST) SODIUM 142 133 - 146 mmol/L [facility] POTASSIUM 3.8 3.3 - 5.1 mmol/L [facility] CHLORIDE 102 96 - 108 mmol/L [facility] CO2 29 21 - 35 mmol/L [facility] BUN 19 6 - 19 mg/dL [facility] CREATININE 0.60 0.5 - 1.5 mg/dL [facility] GLUCOSE 97 70 - 99 mg/dL [facility] ALBUMIN 4.2 3.9 - 4.8 g/dL [facility] TOTAL PROTEIN 6.9 6.5 - 8.0 g/dL [facility] CALCIUM 10.0 8.4 - 10.3 mg/dL [facility] ALKALINE PHOSPHATASE 56 39 - 117 U/L [facility] TOTAL BILIRUBIN 0.5 0.0 - 1.2 mg/dL [facility] AST 16 0 - 37 U/L [facility] ALT 12 0 - 40 U/L [facility] GLOBULIN 2.7 1 - 4.8 g/dL [facility] EGFR 87 >59 mL/min/1.7 3m2 [facility] Comment:If patient is black, multiply result by 1.159. Estimated glomerular filtration rate calculated using the CKD-EPI equation. ANION GAP 15 10 - 20 mmol/L [facility] Blood 03/29/2019 1:08 PM EST 03/29/2019 1:09 PM EST us Ger Anton MD LAB BLOOD ORDERABLES Fi nal Result [address] [address] documented in this encounter Visit Diagnoses Diagnosis Hypertension, unspecified type- Primary documented in this encounter Care Teams Demolition Engineer Relationship Specialty Start Date End Date Ger Anton MD [address] [place] [address] [place] [address] PCP - General Internal Medicine 09/28/18 documented as of this encounter Additional Source Comments The information contained in this document represents components of the legal health record. It is not the complete legal health record.[facility]
--- OUTSIDE RECORDS SUMMARY | 2025-03-16 12:52 | XMS_ITS | Encounter Summary ---
Author Organization [facility] Address [address] [place] [address] Phone Care Team Providers Care Computer Education Teacher Name Role Phone Ger Anton MD Primary Care Provider Encounter Details Date Type Department Care Team (Late st Contact Info) Description 07/05/2019 Ancillary Orders Virtual Department [address] [place] [address] Ger Anton MD [address] [place] [address] [place] [address] Pain in both knees, unspecified chronicity Social [...] documented as of this encounter Results * XR KNEE 4 OR MORE VIEWS (BILATERAL) (07/05/2019 12:29 PM EST) Anatomical Region Laterality Modality Knee Bilateral, Knee Right, Knee Left Radiographic Imaging 07/05/2019 12:3 1 PM EST Impressions 07/05/2019 12:33 PM EST Prominent degenerative changes in the lateral and patellofemoral compartments without acute bony abnormality identified. POS - [id number] Narrative 07/05/2019 12:33 PM EST COMPARISON: None FINDINGS: AP upright, tunnel, lateral, and specialized patellar views of both knees were obtained. There is prominent narrowing of the lateral compartments of both knees with moderate periarticular spurring and articular surface irregularity. There are mild valgus deformities. There is patellofemoral compartment narrowing and minimal periarticular spurring on the right and moderate periarticular spurring on the left. No gross suprapatellar effusion or opaque loose joint body. No traumatic or destructive bony lesions apparent. Procedure Note Merline Villalobos MD - 07/05/2019 COMPARISON: None FINDINGS: AP upright, tunnel, lateral, and specialized patellar views of both kneeswere obtained. There is prominent narrowing of the lateral compartments of both kneeswith moderate periarticular spurring and articular surface irregularity.There are mild valgus deformities. There is patellofemoral compartmentnarrowing and minimal periarticular spurring on the right and moderateperiarticular spurring on the left. No gross suprapatellar effusion oropaque loose joint body. No traumatic or destructive bony lesionsapparent. IMPRESSION: Prominent degenerative changes in the lateral and patellofemoralcompartments without acute bony abnormality identified. POS - [id number] Ger Anton MD IMG XR LOWER EXTREMITY Final Result documented in this encounter Visit Diagnoses Diagnosis Pain in both knees, unspecified chronicity Pain in both knees, unspecified chronicity documented in this encounter Care Teams Computer Education Teacher Relationship Specialty Start Date End Date Ger Anton MD [address] [place] [address] [place] [address] PCP - General Internal Medicine 09/28/18 documented as of this encounter Additional Source Comments The information contained in this document represents components of the legal health record. It is not the complete legal health record.[facility]
== END 2025-03-16 11:56 | disposition home or self-care (01) ==
LOC: HO.HMCHD 11:15
PROVIDERS: PCP Internal Medicine; Visit Provider Student in an Organized Health Care Education/Training Program
DX: I10 Essential (primary) hypertension (principal); E78.49 Other hyperlipidemia; M19.90 Unspecified osteoarthritis, unspecified site; K21.9 Gastro-esophageal reflux disease without esophagitis; R60.9 Edema, unspecified

== ENCOUNTER → 2025-03-16 11:15 | Outpatient (BNVA) | payer MEDICARE, OTHER, SELFPAY | PROVIDERS: PCP Internal Medicine; Visit Provider Student in an Organized Health Care Education/Training Program | DX: I10 Essential (primary) hypertension (principal); E78.49 Other hyperlipidemia; M19.90 Unspecified osteoarthritis, unspecified site; K21.9 Gastro-esophageal reflux disease without esophagitis; R60.9 Edema, unspecified; H26.9 Unspecified cataract; Z79.899 Other long term (current) drug therapy; Z13.30 Encounter for screening examination for mental health and behavioral disorders, unspecified; Z13.39 Encounter for screening examination for other mental health and behavioral disorders | CPT/HCPCS: 96127; 99212 ==